=== PATIENT | female | born 1940 | race African-American/Black ===

== ENCOUNTER 2016-06-02 16:56 | Inpatient (IN) | payer OTHER, MEDICAID ==
[~2016-06-02] VITALS: Ht 165.1 cm; Wt 124.8 kg
[2016-06-02] MEDS ORDERED: ONDANSETRON HCL 4 MG/2 ML VIAL ONE (17:36)
[2016-06-02] MEDS ORDERED: ONDANSETRON HCL 4 MG/2 ML VIAL IV ONE (17:45)
[2016-06-02] MEDS ORDERED: DILTIAZEM HCL 25 MG/5 ML VIAL IV ONE (17:45)
[2016-06-02 18:15] LABS: B-Type Natriuretic Peptide 16.9 pg/mL (0-100); Temperature: 23.4 C (20.0-25.0)
[2016-06-02 18:19] LABS: Basophils # (auto) 0.1 uL; Basophils % (auto) 0.7 % (0.0-2.0); Eosinophils # (auto) 0.1 uL; Eosinophils % (auto) 0.8 % (0.0-7.0); Hematocrit 41.4 % (36.0-46.0); Hemoglobin 13.3 g/dL (12.2-16.2); Lymphocytes # (auto) 1.7 uL; Lymphocytes % (auto) 18.1 % (10.0-50.0); Mean Corpuscular Hemoglobin 30.6 pg (28.0-32.0); Mean Corpuscular Hgb Conc. 32.2 g/dL (32.0-36.0); Mean Platelet Volume 9.4 fL (7.4-10.4); Monocytes # (auto) 0.1 uL; Monocytes % (auto) 0.9 % (0.0-12.0); Neutrophils # (auto) 7.4 uL; Neutrophils % (auto) 79.5 % (37.0-80.0); Platelet Count (auto) 220 10^3/uL (140-450); Red Cell Distribution Width 14.4 % (11.6-16.0); White Blood Cell 9.4 10^3/uL (4.4-10.8)
[2016-06-02 18:22] LABS: Albumin 3.8 g/dL (3.4-5.0); BUN/Creatinine Ratio 13.8; Bilirubin, Total 0.7 mg/dL (0.2-1.0); Calcium 9.7 mg/dL (8.5-10.1); Potassium 4.4 mmol/L (3.5-5.1)
[2016-06-02] MEDS ORDERED: ACETAMINOPHEN 325 MG TAB PO ONE ×2 (18:30→21:45)
[2016-06-02] MEDS ORDERED: cefTRIAXone 1GM/50ML D5W 50 ML IV ONE (19:45)
[2016-06-02 21:04] LABS: Urine Bilirubin Negative (Negative); Urine Blood Negative /uL (Negative); Urine Color Yellow (Yellow); Urine Glucose Normal (Normal); Urine Ketone Negative (Negative); Urine Nitrite Negative (Negative); Urine RBC 1 /hpf (0 - 4); Urine Squamous Epithelial Cell FEW /hpf (<5); Urine pH 6.5 (5.0-8.0)
[2016-06-03] VITALS (7 sets, daily range): BP systolic 101–161; BP diastolic 43–79
[2016-06-03 00:06] LABS: Lactic Acid w/Reflex 2.9 mmol/L (0.4-2.0)
[2016-06-03 00:12] LABS: REFLEX LACTIC ACID YES OR NO YES
[2016-06-03] MEDS ORDERED: DEXTROSE (50%) 50ML SYRG IV PRN (02:00)
[2016-06-03] MEDS ORDERED: VANCOMYCIN 1GM/250ML D5W 250 ML IV ONE (02:00)
[2016-06-03] MEDS ORDERED: ALBUMIN 5% 250 ML IV ONE (02:00)
[2016-06-03] MEDS ORDERED: ONDANSETRON HCL 4 MG/2 ML VIAL IV PRN (02:00)
[2016-06-03] MEDS ORDERED: ALBUTEROL SULF 2.5 MG/0.5ML(0.5%) NEB SOLN NEB PRN (06:00)
[2016-06-03] MEDS ORDERED: FUROSEMIDE 20 MG/2 ML VIAL IV ONE (06:00)
[2016-06-03] MEDS: ACCU-CHEK COMFORT CURVE STRIP VI SCH ×3 (06:29→18:10)
[2016-06-03] MEDS: InsuLIN REG 1unit/0.01ml Soln (100units/ml) SC SCH ×3 (06:29→18:26)
[2016-06-03] MEDS: GLIMEPIRIDE 2 MG TAB PO SCH (06:36)
[2016-06-03 07:59] LABS: Lactic Acid w/Reflex 2.5 mmol/L (0.4-2.0)
[2016-06-03 08:22] LABS: REFLEX LACTIC ACID YES OR NO YES
[2016-06-03] MEDS: ACETAMINOPHEN 325 MG TAB PO PRN ×2 (09:59→16:42)
[2016-06-03] MEDS ORDERED: LISINOPRIL 5 MG TAB PO SCH (10:00)
[2016-06-03] MEDS ORDERED: HCTZ 25 MG TAB PO SCH (10:00)
[2016-06-03] MEDS ORDERED: BENAZEPRIL HCL 10 MG TAB PO SCH (10:00)
[2016-06-03] MEDS: FUROSEMIDE 20 MG TAB PO SCH (10:01)
[2016-06-03] MEDS: ENOXAPARIN SOD 40 MG/0.4 ML SYRINGE SC SCH (10:01)
[2016-06-03] MEDS: FAMOTIDINE 20 MG TAB PO SCH ×2 (10:01→21:43)
[2016-06-03] MEDS ORDERED: VANCOMYCIN PER PHARMACY 0 MG IV SCH (11:15)
[2016-06-03] MEDS ORDERED: VANCOMYCIN 1GM/250ML D5W 250 ML IV SCH (13:00)
[2016-06-03] MEDS: PIPERACILLIN-TAZOB 3.375GM 100 ML IV SCH ×2 (13:13→18:25)
[2016-06-03] MEDS: SODIUM CHLORIDE 0.9% 1,000 ML IV SCH (16:44)
[2016-06-03] MEDS ORDERED: DOCUSATE SOD 100 MG CAP PO PRN (16:45)
[2016-06-03] MEDS: HYDROcodone-ACET 5/325MG TAB PO PRN (21:44)
[2016-06-03] MEDS ORDERED: ATORVASTATIN 20 MG TAB PO SCH (22:00)
[2016-06-03] MEDS ORDERED: PATIENTS OWN MEDICATION (simvastatin 20 MG) PO SCH ×2 (22:00)
[2016-06-03] MEDS ORDERED: cefTRIAXone 1GM/50ML D5W 50 ML IV SCH (22:00)
[2016-06-04] VITALS (7 sets, daily range): BP systolic 134–180; BP diastolic 64–93
[2016-06-04] MEDS: ACCU-CHEK COMFORT CURVE STRIP VI SCH ×5 (00:12→23:42)
[2016-06-04] MEDS: PIPERACILLIN-TAZOB 3.375GM 100 ML IV SCH ×2 (00:13→05:41)
[2016-06-04] MEDS: InsuLIN REG 1unit/0.01ml Soln (100units/ml) SC SCH ×5 (00:29→23:42)
[2016-06-04] MEDS: GLIMEPIRIDE 2 MG TAB PO SCH (05:41)
[2016-06-04 05:42] LABS: Basophils # (auto) 0 uL; Basophils % (auto) 0.2 % (0.0-2.0); Eosinophils # (auto) 0.2 uL; Eosinophils % (auto) 2.2 % (0.0-7.0); Hematocrit 36.3 % (36.0-46.0); Hemoglobin 11.7 g/dL (12.2-16.2); Lymphocytes # (auto) 1.8 uL; Lymphocytes % (auto) 16.3 % (10.0-50.0); Mean Corpuscular Hemoglobin 30.7 pg (28.0-32.0); Mean Corpuscular Hgb Conc. 32.3 g/dL (32.0-36.0); Mean Corpuscular Volume 95.2 fL (80.0-100.0); Mean Platelet Volume 9.4 fL (7.4-10.4); Monocytes # (auto) 0.4 uL; Monocytes % (auto) 3.8 % (0.0-12.0); Neutrophils # (auto) 8.6 uL; Neutrophils % (auto) 77.5 % (37.0-80.0); Platelet Count (auto) 224 10^3/uL (140-450); White Blood Cell 11.1 10^3/uL (4.4-10.8)
[2016-06-04 06:02] LABS: BUN/Creatinine Ratio 11.6; Bilirubin, Total 0.9 mg/dL (0.2-1.0); Magnesium 2.1 mg/dL (1.6-2.6); Potassium 3.5 mmol/L (3.5-5.1)
[2016-06-04] MEDS: FUROSEMIDE 20 MG TAB PO SCH (09:22)
[2016-06-04] MEDS: FAMOTIDINE 20 MG TAB PO SCH ×2 (09:22→21:36)
[2016-06-04] MEDS: ENOXAPARIN SOD 40 MG/0.4 ML SYRINGE SC SCH (09:25)
[2016-06-04] MEDS ORDERED: LISINOPRIL 5 MG TAB PO SCH (10:00)
[2016-06-04] MEDS: SODIUM CHLORIDE 0.9% 1,000 ML IV SCH ×2 (11:30→15:30)
[2016-06-04] MEDS: PIPERACILLIN-TAZOB 2.25GM 50 ML IV SCH ×3 (12:37→23:42)
[2016-06-04 13:37] LABS: Hepatitis B Surface Antibody Negative
[2016-06-04] MEDS ORDERED: LACTULOSE 20Gm/30ML SOLN PO PRN (15:00)
[2016-06-04] MEDS ORDERED: GABA300C8 PO (15:09)
[2016-06-04] MEDS ORDERED: DOCU100C8 PO (15:09)
[2016-06-04] MEDS ORDERED: ALLO300T2 PO (15:20)
[2016-06-04] MEDS ORDERED: LISI2.5T47 PO (15:20)
[2016-06-04] MEDS ORDERED: POTA10SO11 PO (15:20)
[2016-06-04] MEDS ORDERED: OMEP20CA5 PO (15:20)
[2016-06-04] MEDS ORDERED: CLON0.2T PO (15:20)
[2016-06-04] MEDS ORDERED: INSLANTI SC (15:20)
[2016-06-04] MEDS ORDERED: INSLISPI SC (15:20)
[2016-06-04] MEDS: cloNIDine HCL 0.1 MG TAB PO PRN (21:36)
[2016-06-04] MEDS: METOPROLOL TARTRATE 25 MG TAB PO SCH (21:36)
[2016-06-04] MEDS: HYDROcodone-ACET 5/325MG TAB PO PRN (21:37)
[2016-06-05] VITALS (7 sets, daily range): BP systolic 125–158; BP diastolic 61–94
[2016-06-05] MEDS: HYDROcodone-ACET 5/325MG TAB PO PRN (05:34)
[2016-06-05] MEDS: cloNIDine HCL 0.1 MG TAB PO PRN (05:34)
[2016-06-05] MEDS: GLIMEPIRIDE 2 MG TAB PO SCH (05:35)
[2016-06-05] MEDS: ACCU-CHEK COMFORT CURVE STRIP VI SCH ×3 (05:35→18:05)
[2016-06-05] MEDS: InsuLIN REG 1unit/0.01ml Soln (100units/ml) SC SCH ×3 (05:35→18:06)
[2016-06-05] MEDS: PIPERACILLIN-TAZOB 2.25GM 50 ML IV SCH (05:35)
[2016-06-05 05:58] LABS: Basophils # (auto) 0 uL; Basophils % (auto) 0.5 % (0.0-2.0); Eosinophils # (auto) 0.4 uL; Eosinophils % (auto) 5.5 % (0.0-7.0); Lymphocytes % (auto) 27.2 % (10.0-50.0); Mean Corpuscular Hemoglobin 31.1 pg (28.0-32.0); Mean Corpuscular Hgb Conc. 32.5 g/dL (32.0-36.0); Mean Corpuscular Volume 95.9 fL (80.0-100.0); Mean Platelet Volume 8.6 fL (7.4-10.4); Monocytes # (auto) 0.5 uL; Monocytes % (auto) 7.1 % (0.0-12.0); Neutrophils # (auto) 4.4 uL; Neutrophils % (auto) 59.7 % (37.0-80.0); Platelet Count (auto) 228 10^3/uL (140-450); Red Cell Distribution Width 15.6 % (11.6-16.0); White Blood Cell 7.4 10^3/uL (4.4-10.8)
[2016-06-05 06:15] LABS: BUN/Creatinine Ratio 12.8; Calcium 9.1 mg/dL (8.5-10.1); Potassium 3.5 mmol/L (3.5-5.1)
[2016-06-05 06:18] LABS: Bilirubin, Total 0.6 mg/dL (0.2-1.0)
[2016-06-05] MEDS: SODIUM CHLORIDE 0.9% 1,000 ML IV SCH (08:10)
[2016-06-05] MEDS: FAMOTIDINE 20 MG TAB PO SCH ×2 (10:19→21:56)
[2016-06-05] MEDS: METOPROLOL TARTRATE 25 MG TAB PO SCH ×2 (10:20→21:57)
[2016-06-05] MEDS: ENOXAPARIN SOD 40 MG/0.4 ML SYRINGE SC SCH (10:21)
[2016-06-05] MEDS: AMPICILLIN 250 MG CAP PO SCH (17:47)
[2016-06-06] MEDS: HYDROcodone-ACET 5/325MG TAB PO PRN ×2 (00:02→16:46)
[2016-06-06] MEDS: ACCU-CHEK COMFORT CURVE STRIP VI SCH ×4 (00:27→18:32)
[2016-06-06] MEDS: InsuLIN REG 1unit/0.01ml Soln (100units/ml) SC SCH ×4 (00:28→18:32)
[2016-06-06] MEDS ORDERED: AMPICILLIN INJ 1 GM in SODIUM CHL 0.9% 50 ML IV ONE (01:00)
[2016-06-06] MEDS ORDERED: AMPICILLIN SOD 1 GM VL ONE (01:04)
[2016-06-06] MEDS: SODIUM CHLORIDE 0.9% 1,000 ML IV SCH ×2 (01:20→17:18)
[2016-06-06 04:18] VITALS: BP 121/72
[2016-06-06 05:00] VITALS: BP 148/78
[2016-06-06] MEDS: GLIMEPIRIDE 2 MG TAB PO SCH (06:12)
[2016-06-06 06:35] LABS: Albumin 3.1 g/dL (3.4-5.0); Calcium 9.2 mg/dL (8.5-10.1); Potassium 3.4 mmol/L (3.5-5.1)
[2016-06-06 06:38] LABS: BUN/Creatinine Ratio 13.3
[2016-06-06 06:41] LABS: Bilirubin, Total 0.6 mg/dL (0.2-1.0); Total Protein 7.3 g/dL (6.4-8.2)
[2016-06-06] MEDS: AMPICILLIN 250 MG CAP PO SCH ×4 (07:00→18:31)
[2016-06-06 09:00] VITALS: BP 146/77
[2016-06-06] MEDS: FAMOTIDINE 20 MG TAB PO SCH ×2 (09:57→21:08)
[2016-06-06] MEDS: ENOXAPARIN SOD 40 MG/0.4 ML SYRINGE SC SCH (09:57)
[2016-06-06] MEDS: METOPROLOL TARTRATE 25 MG TAB PO SCH ×2 (09:58→21:08)
[2016-06-06 13:00] VITALS: BP 161/99
[2016-06-06] MEDS: cloNIDine HCL 0.1 MG TAB PO PRN ×2 (14:42→21:09)
[2016-06-06 17:00] VITALS: BP 167/93
[2016-06-06 22:00] VITALS: BP 205/95
[2016-06-07] VITALS (7 sets, daily range): BP systolic 160–182; BP diastolic 48–92
[2016-06-07] MEDS: AMPICILLIN 250 MG CAP PO SCH ×4 (00:38→18:15)
[2016-06-07 05:45] LABS: Basophils # (auto) 0 uL; Basophils % (auto) 0.4 % (0.0-2.0); Eosinophils # (auto) 0.3 uL; Eosinophils % (auto) 3.8 % (0.0-7.0); Hematocrit 38.6 % (36.0-46.0); Hemoglobin 12.6 g/dL (12.2-16.2); Lymphocytes # (auto) 2.7 uL; Lymphocytes % (auto) 33.1 % (10.0-50.0); Mean Corpuscular Hemoglobin 31.2 pg (28.0-32.0); Mean Corpuscular Hgb Conc. 32.7 g/dL (32.0-36.0); Mean Corpuscular Volume 95.5 fL (80.0-100.0); Mean Platelet Volume 8.6 fL (7.4-10.4); Monocytes # (auto) 0.8 uL; Monocytes % (auto) 10.1 % (0.0-12.0); Neutrophils # (auto) 4.3 uL; Neutrophils % (auto) 52.6 % (37.0-80.0); Platelet Count (auto) 264 10^3/uL (140-450); Red Cell Distribution Width 14.7 % (11.6-16.0); White Blood Cell 8.1 10^3/uL (4.4-10.8)
[2016-06-07 06:09] LABS: Potassium 3.7 mmol/L (3.5-5.1)
[2016-06-07 06:14] LABS: Albumin 3.2 g/dL (3.4-5.0); BUN/Creatinine Ratio 11.9; Calcium 9.3 mg/dL (8.5-10.1)
[2016-06-07 06:20] LABS: Bilirubin, Total 0.6 mg/dL (0.2-1.0); Total Protein 7.3 g/dL (6.4-8.2)
[2016-06-07] MEDS: ACCU-CHEK COMFORT CURVE STRIP VI SCH ×4 (06:29→17:56)
[2016-06-07] MEDS: InsuLIN REG 1unit/0.01ml Soln (100units/ml) SC SCH ×4 (06:29→17:56)
[2016-06-07] MEDS: GLIMEPIRIDE 2 MG TAB PO SCH (06:30)
[2016-06-07] MEDS: cloNIDine HCL 0.1 MG TAB PO PRN ×2 (06:32→22:08)
[2016-06-07] MEDS: FAMOTIDINE 20 MG TAB PO SCH ×2 (09:28→22:07)
[2016-06-07] MEDS: METOPROLOL TARTRATE 25 MG TAB PO SCH ×2 (09:29→22:08)
[2016-06-07] MEDS: SODIUM CHLORIDE 0.9% 1,000 ML IV SCH (09:30)
[2016-06-08] MEDS: AMPICILLIN 250 MG CAP PO SCH ×3 (00:30→11:30)
[2016-06-08] MEDS: SODIUM CHLORIDE 0.9% 1,000 ML IV SCH (02:50)
[2016-06-08 05:25] VITALS: BP 167/80
[2016-06-08] MEDS: InsuLIN REG 1unit/0.01ml Soln (100units/ml) SC SCH ×3 (06:00→12:14)
[2016-06-08] MEDS: ACCU-CHEK COMFORT CURVE STRIP VI SCH ×3 (06:00→12:13)
[2016-06-08 06:18] LABS: Calcium 9.1 mg/dL (8.5-10.1); Potassium 3.7 mmol/L (3.5-5.1)
[2016-06-08 06:20] LABS: Albumin 3.2 g/dL (3.4-5.0); BUN/Creatinine Ratio 12.8
[2016-06-08 06:23] LABS: Bilirubin, Total 0.5 mg/dL (0.2-1.0); Total Protein 7.3 g/dL (6.4-8.2)
[2016-06-08] MEDS: GLIMEPIRIDE 2 MG TAB PO SCH (07:07)
[2016-06-08] MEDS: cloNIDine HCL 0.1 MG TAB PO PRN ×2 (07:07→12:35)
[2016-06-08 08:00] VITALS: BP 161/77
[2016-06-08 09:00] VITALS: BP 161/77
[2016-06-08] MEDS: FAMOTIDINE 20 MG TAB PO SCH (09:47)
[2016-06-08] MEDS: METOPROLOL TARTRATE 25 MG TAB PO SCH (09:48)
[2016-06-08] MEDS: ACETAMINOPHEN 325 MG TAB PO PRN (09:57)
[2016-06-08] MEDS ORDERED: cloNIDine HCL 0.1 MG TAB PO ONE (12:15)
[2016-06-08 13:00] VITALS: BP 198/95
[2016-06-08] MEDS ORDERED: [UNRECOGNIZED DRUG - CODE] PO (13:21)
[2016-06-08] MEDS ORDERED: SACC250C PO (13:21)
[2016-06-08 16:01] VITALS: BP 198/75
== END 2016-06-08 16:30 | disposition home or self-care (01) | DRG 871 ==
LOC: EDUNIT# 16:56 → ER 16:56 → TELE 16:57 → TELE-WESTW 06-03 02:42
PROVIDERS: ADMIT Nurse Practitioner; ATTEND Internal Medicine
DX: A40.8 Other streptococcal sepsis (principal); N17.0 Acute kidney failure with tubular necrosis; I50.31 Acute diastolic (congestive) heart failure; I13.0 Hypertensive heart and chronic kidney disease with heart failure and stage 1 through stage 4 chronic kidney disease, or unspecified chronic kidney disease; N18.3 Chronic kidney disease, stage 3 (moderate); E11.22 Type 2 diabetes mellitus with diabetic chronic kidney disease; F32.9 Major depressive disorder, single episode, unspecified; D25.9 Leiomyoma of uterus, unspecified; E11.21 Type 2 diabetes mellitus with diabetic nephropathy; G47.33 Obstructive sleep apnea (adult) (pediatric); I25.10 Atherosclerotic heart disease of native coronary artery without angina pectoris; J44.9 Chronic obstructive pulmonary disease, unspecified; T38.0X5A Adverse effect of glucocorticoids and synthetic analogues, initial encounter; Z82.49 Family history of ischemic heart disease and other diseases of the circulatory system; Z99.81 Dependence on supplemental oxygen; Z83.3 Family history of diabetes mellitus; Z80.9 Family history of malignant neoplasm, unspecified; Z88.6 Allergy status to analgesic agent
CPT/HCPCS: 36415; 51702; 70450; 71010; 71020; 74176; 76705; 80053; 80061; 81001; 82378; 82962; 83036; 83605; 83735; 83880; 84484; 85025; 86704; 86706; 86708; 86803; 87040; 87077; 87086; 87186; 87340; 93306; 94761; 96365; 96366; 96375; J0696; J1815; J2405; J2543

== ENCOUNTER 2017-07-24 11:26 | Inpatient (IN) | payer OTHER, MEDICAID ==
[~2017-07-24] VITALS: Ht 152.4 cm; Wt 128.2 kg
[~2017-07-24 11:26] MED LIST: ALLO300T2 PO; CLON0.2T PO; DOCU100C8 PO; GABA300C10 PO; INSLANTI SC; INSLISPI SC; LISI2.5T47 PO; OMEP20CA74 PO; POTA10SO11 PO; SACC250C PO; [UNRECOGNIZED DRUG - CODE] PO
[2017-07-24 13:04] LABS: Basophils # (auto) 0 uL; Basophils % (auto) 0.6 % (0.0-2.0); Eosinophils # (auto) 0.2 uL; Eosinophils % (auto) 2.4 % (0.0-7.0); Hematocrit 36.5 % (36.0-46.0); Lymphocytes # (auto) 1.9 uL; Lymphocytes % (auto) 26.2 % (10.0-50.0); Mean Corpuscular Hemoglobin 31.2 pg (28.0-32.0); Mean Corpuscular Hgb Conc. 32.8 g/dL (32.0-36.0); Mean Corpuscular Volume 95.1 fL (80.0-100.0); Monocytes # (auto) 0.4 uL; Monocytes % (auto) 5.2 % (0.0-12.0); Neutrophils # (auto) 4.8 uL; Neutrophils % (auto) 65.6 % (37.0-80.0); Platelet Count (auto) 248 10^3/uL (140-450); Red Blood Cells 3.84 10^6/uL (4.0-5.20); Red Cell Distribution Width 14.9 % (11.8-14.3); White Blood Cell 7.3 10^3/uL (4.4-10.8)
[2017-07-24] MEDS ORDERED: SODIUM CHLORIDE 0.9% 1,000 ML IV ONE (13:10)
[2017-07-24] MEDS ORDERED: ASPirin 81 mg TAB PO ONE (13:15)
[2017-07-24 13:21] LABS: Albumin 3.6 g/dL (3.4-5.0); Anion Gap 10 (5-15); Blood Urea Nitrogen 35 mg/dL (7-18); Calcium 9.7 mg/dL (8.5-10.1); Carbon Dioxide 30 mmol/L (21-32); Chloride 100 mmol/L (98-107); Glucose 153 mg/dL (74-106); Magnesium 2.1 mg/dL (1.6-2.6); Potassium 4.1 mmol/L (3.5-5.1); Sodium 140 mmol/L (136-145)
[2017-07-24 13:23] LABS: Alanine Aminotransferase 31 U/L (13-56); Aspartate Aminotransferase 21 U/L (15-37); GFR African American 30 mL/min; GFR Non-African American 25 mL/min
[2017-07-24 13:28] LABS: Alkaline Phosphatase 58 U/L (45-117); Bilirubin, Total 0.3 mg/dL (0.2-1.0); Total Protein 7.6 g/dL (6.4-8.2)
[2017-07-24 14:22] LABS: INR 0.93 (0.9-1.15); Partial Thromboplastin Time 25.7 sec (23.78-33.04)
[2017-07-24 14:22] LABS: Urine Bacteria NONE SEEN /hpf (None Seen); Urine Blood Negative /uL (Negative); Urine Specific Gravity 1.014 (1.001-1.035); Urine WBC <1 /hpf (0 - 5)
[2017-07-24] MEDS ORDERED: FUROSEMIDE 40 MG/4 ML VIAL IV ONE (15:45)
[2017-07-24] MEDS ORDERED: DEXTROSE (50%) 50ML SYRG IV PRN (18:15)
[2017-07-24] MEDS ORDERED: cloNIDine HCL 0.1 MG TAB PO PRN (18:30)
[2017-07-24] MEDS ORDERED: NITROGLYCERIN 0.4 MG SL TAB SL PRN (18:30)
[2017-07-24] MEDS ORDERED: MORPHINE SULFATE 8mg/ml INJ SDV IV PRN (18:30)
[2017-07-24] MEDS ORDERED: ACETAMINOPHEN 325 MG TAB PO PRN (18:30)
[2017-07-24] MEDS ORDERED: ONDANSETRON HCL 4 MG/2 ML VIAL IV PRN (18:30)
[2017-07-24] MEDS: FAMOTIDINE 20 MG TAB PO SCH (18:56)
[2017-07-24 21:18] VITALS: BP 166/86
[2017-07-24 21:35] VITALS: BP 166/86
[2017-07-24] MEDS: ACCU-CHEK COMFORT CURVE STRIP VI SCH (22:00)
[2017-07-24] MEDS: INSULIN LANTUS (GLARGINE) 1 /0.01ml (100units/ml) SC SCH (22:00)
[2017-07-24] MEDS: InsuLIN REG 1unit/0.01ml Soln (100units/ml) SC SCH (22:00)
[2017-07-24] MEDS: GABAPENTIN 300 MG CAP PO SCH (22:03)
[2017-07-24] MEDS: BACLOFEN 10 MG TAB PO SCH (22:03)
[2017-07-24] MEDS: cloNIDine HCL 0.1 MG TAB PO SCH (22:04)
[2017-07-24] MEDS: ATORVASTATIN 20 MG TAB PO SCH (22:05)
[2017-07-24] MEDS: SODIUM CHLOR 0.9% PF (SALINE LOCK) 10ML VIAL/SYR IV SCH (22:05)
[2017-07-24] MEDS: MORPHINE SULFATE 8mg/ml INJ SDV IV PRN (22:45)
[2017-07-25] MEDS: TEMAZEPAM 15 MG CAP PO PRN ×2 (01:30→23:05)
[2017-07-25 05:07] VITALS: BP 140/74
[2017-07-25 06:35] LABS: Basophils # (auto) 0.1 uL; Basophils % (auto) 1.1 % (0.0-2.0); Eosinophils # (auto) 0.2 uL; Eosinophils % (auto) 2.8 % (0.0-7.0); Hematocrit 35.3 % (36.0-46.0); Hemoglobin 11.6 g/dL (12.2-16.2); Lymphocytes # (auto) 2.3 uL; Lymphocytes % (auto) 36.7 % (10.0-50.0); Mean Corpuscular Hemoglobin 31.5 pg (28.0-32.0); Mean Corpuscular Volume 95.3 fL (80.0-100.0); Monocytes # (auto) 0.5 uL; Monocytes % (auto) 8.3 % (0.0-12.0); Neutrophils # (auto) 3.2 uL; Neutrophils % (auto) 51.1 % (37.0-80.0); Nucleated Red Blood Cells % 0.1 %; Platelet Count (auto) 256 10^3/uL (140-450); Red Cell Distribution Width 14.9 % (11.8-14.3); White Blood Cell 6.2 10^3/uL (4.4-10.8)
[2017-07-25] MEDS: FUROSEMIDE 40 MG/4 ML VIAL IV SCH ×2 (06:41→17:37)
[2017-07-25] MEDS: SPIRONOLACTONE 25 MG TAB PO SCH ×2 (06:41→17:37)
[2017-07-25] MEDS: SODIUM CHLOR 0.9% PF (SALINE LOCK) 10ML VIAL/SYR IV SCH ×3 (06:42→21:43)
[2017-07-25 06:46] LABS: Albumin 3.3 g/dL (3.4-5.0); BUN/Creatinine Ratio 16.6; Calcium 9.3 mg/dL (8.5-10.1); Potassium 3.8 mmol/L (3.5-5.1)
[2017-07-25 06:49] LABS: Bilirubin, Total 0.3 mg/dL (0.2-1.0); Total Protein 7.3 g/dL (6.4-8.2)
[2017-07-25] MEDS: InsuLIN REG 1unit/0.01ml Soln (100units/ml) SC SCH ×4 (06:55→21:44)
[2017-07-25] MEDS: ACCU-CHEK COMFORT CURVE STRIP VI SCH ×4 (06:55→21:43)
[2017-07-25] MEDS: MORPHINE SULFATE 8mg/ml INJ SDV IV PRN ×2 (06:55→17:07)
[2017-07-25 08:00] VITALS: BP 143/69
[2017-07-25] MEDS ORDERED: GLIMEPIRIDE 2 MG TAB PO SCH (08:00)
[2017-07-25] MEDS: MULTIPLE VITAMIN TAB PO SCH (08:42)
[2017-07-25] MEDS: LORATADINE 10 MG TAB PO SCH (08:42)
[2017-07-25] MEDS: PANTOPRAZOLE 40 MG TAB PO SCH (08:43)
[2017-07-25] MEDS: amLODIPine BESYLATE 5 MG TAB PO SCH (08:44)
[2017-07-25] MEDS: ALLOPURINOL 100 MG TAB PO SCH (08:44)
[2017-07-25] MEDS: cloNIDine HCL 0.1 MG TAB PO SCH ×2 (08:46→21:39)
[2017-07-25] MEDS: ENOXAPARIN SOD 30 MG/0.3 ML SYRINGE SC SCH (08:47)
[2017-07-25 09:00] VITALS: BP 143/69
[2017-07-25] MEDS ORDERED: BENAZEPRIL HCL 10 MG TAB PO SCH (10:00)
[2017-07-25 13:00] VITALS: BP 136/65
[2017-07-25 17:00] VITALS: BP 159/66
[2017-07-25] MEDS ORDERED: BUMETANIDE (0.25MG/ML) 4 ML VIAL IV ONE (19:30)
[2017-07-25 19:49] LABS: BUN/Creatinine Ratio 15.6; Calcium 9.1 mg/dL (8.5-10.1); Potassium 4.2 mmol/L (3.5-5.1)
[2017-07-25] MEDS: HYDROcodone-ACET 5/325MG TAB PO PRN (20:31)
[2017-07-25 21:24] VITALS: BP 128/66
[2017-07-25] MEDS: ATORVASTATIN 20 MG TAB PO SCH (21:39)
[2017-07-25] MEDS: BACLOFEN 10 MG TAB PO SCH (21:39)
[2017-07-25] MEDS: GABAPENTIN 300 MG CAP PO SCH (21:39)
[2017-07-25] MEDS: INSULIN LANTUS (GLARGINE) 1 /0.01ml (100units/ml) SC SCH (21:43)
[2017-07-26 04:37] VITALS: BP 147/65
[2017-07-26] MEDS: SPIRONOLACTONE 25 MG TAB PO SCH ×2 (05:24→18:00)
[2017-07-26] MEDS: DOCUSATE SOD 100 MG CAP PO PRN (05:24)
[2017-07-26] MEDS: SODIUM CHLOR 0.9% PF (SALINE LOCK) 10ML VIAL/SYR IV SCH ×3 (05:24→22:00)
[2017-07-26] MEDS: HYDROcodone-ACET 5/325MG TAB PO PRN (05:59)
[2017-07-26] MEDS ORDERED: FUROSEMIDE 40 MG/4 ML VIAL IV SCH (06:00)
[2017-07-26] MEDS: ACCU-CHEK COMFORT CURVE STRIP VI SCH ×4 (06:12→22:00)
[2017-07-26] MEDS: InsuLIN REG 1unit/0.01ml Soln (100units/ml) SC SCH ×4 (06:12→22:00)
[2017-07-26 08:53] VITALS: BP 152/73
[2017-07-26] MEDS: amLODIPine BESYLATE 5 MG TAB PO SCH (09:19)
[2017-07-26] MEDS: LORATADINE 10 MG TAB PO SCH (09:19)
[2017-07-26] MEDS: PANTOPRAZOLE 40 MG TAB PO SCH (09:20)
[2017-07-26] MEDS: ALLOPURINOL 100 MG TAB PO SCH (09:20)
[2017-07-26] MEDS: cloNIDine HCL 0.1 MG TAB PO SCH ×2 (09:20→23:04)
[2017-07-26] MEDS: ENOXAPARIN SOD 30 MG/0.3 ML SYRINGE SC SCH (09:21)
[2017-07-26] MEDS: MULTIPLE VITAMIN TAB PO SCH (09:21)
[2017-07-26] MEDS: FAMOTIDINE 20 MG TAB PO SCH (09:24)
[2017-07-26] MEDS: MORPHINE SULFATE 8mg/ml INJ SDV IV PRN (09:29)
[2017-07-26 13:00] VITALS: BP 138/63
[2017-07-26 17:00] VITALS: BP 141/78
[2017-07-26 21:55] VITALS: BP 157/76
[2017-07-26] MEDS: INSULIN LANTUS (GLARGINE) 1 /0.01ml (100units/ml) SC SCH (22:00)
[2017-07-26] MEDS: BACLOFEN 10 MG TAB PO SCH (23:03)
[2017-07-26] MEDS: GABAPENTIN 300 MG CAP PO SCH (23:04)
[2017-07-26] MEDS: ATORVASTATIN 20 MG TAB PO SCH (23:05)
[2017-07-27 04:49] VITALS: BP 137/61
[2017-07-27] MEDS: SPIRONOLACTONE 25 MG TAB PO SCH ×2 (05:46→17:23)
[2017-07-27] MEDS: SODIUM CHLOR 0.9% PF (SALINE LOCK) 10ML VIAL/SYR IV SCH ×3 (05:47→22:58)
[2017-07-27] MEDS: InsuLIN REG 1unit/0.01ml Soln (100units/ml) SC SCH ×4 (05:48→22:24)
[2017-07-27] MEDS: ACCU-CHEK COMFORT CURVE STRIP VI SCH ×4 (05:48→22:24)
[2017-07-27 06:57] LABS: Calcium 9.4 mg/dL (8.5-10.1)
[2017-07-27 07:01] LABS: BUN/Creatinine Ratio 16.5
[2017-07-27 07:18] VITALS: BP 133/65
[2017-07-27 08:00] VITALS: BP 133/65
[2017-07-27] MEDS: ENOXAPARIN SOD 30 MG/0.3 ML SYRINGE SC SCH (09:02)
[2017-07-27] MEDS: LORATADINE 10 MG TAB PO SCH (09:02)
[2017-07-27] MEDS: FUROSEMIDE 40 MG/4 ML VIAL IV SCH (09:02)
[2017-07-27] MEDS: ALLOPURINOL 100 MG TAB PO SCH (09:03)
[2017-07-27] MEDS: PANTOPRAZOLE 40 MG TAB PO SCH (09:03)
[2017-07-27] MEDS: amLODIPine BESYLATE 5 MG TAB PO SCH (09:04)
[2017-07-27] MEDS: cloNIDine HCL 0.1 MG TAB PO SCH ×2 (09:04→22:16)
[2017-07-27] MEDS: MULTIPLE VITAMIN TAB PO SCH (09:04)
[2017-07-27] MEDS ORDERED: FUROSEMIDE 40 MG/4 ML VIAL IV SCH (10:00)
[2017-07-27] MEDS: DOCUSATE SOD 100 MG CAP PO PRN (10:27)
[2017-07-27 11:44] VITALS: BP 119/76
[2017-07-27] MEDS: HYDROcodone-ACET 5/325MG TAB PO PRN (15:28)
[2017-07-27 16:10] VITALS: BP 133/71
[2017-07-27 22:00] VITALS: BP 145/80
[2017-07-27] MEDS: GABAPENTIN 300 MG CAP PO SCH (22:16)
[2017-07-27] MEDS: BACLOFEN 10 MG TAB PO SCH (22:17)
[2017-07-27] MEDS: ATORVASTATIN 20 MG TAB PO SCH (22:17)
[2017-07-27] MEDS: INSULIN LANTUS (GLARGINE) 1 /0.01ml (100units/ml) SC SCH (22:23)
[2017-07-28] MEDS: HYDROcodone-ACET 5/325MG TAB PO PRN (03:48)
[2017-07-28] MEDS: SODIUM CHLOR 0.9% PF (SALINE LOCK) 10ML VIAL/SYR IV SCH ×3 (04:55→21:53)
[2017-07-28 05:00] VITALS: BP 131/73
[2017-07-28 06:38] LABS: BUN/Creatinine Ratio 18.5; Calcium 9.2 mg/dL (8.5-10.1); Potassium 3.9 mmol/L (3.5-5.1)
[2017-07-28] MEDS: SPIRONOLACTONE 25 MG TAB PO SCH ×2 (06:44→17:48)
[2017-07-28] MEDS: InsuLIN REG 1unit/0.01ml Soln (100units/ml) SC SCH ×4 (06:45→21:41)
[2017-07-28] MEDS: ACCU-CHEK COMFORT CURVE STRIP VI SCH ×4 (06:45→21:41)
[2017-07-28 08:20] VITALS: BP 135/69
[2017-07-28] MEDS: ENOXAPARIN SOD 30 MG/0.3 ML SYRINGE SC SCH (09:19)
[2017-07-28] MEDS: FUROSEMIDE 40 MG/4 ML VIAL IV SCH (09:20)
[2017-07-28] MEDS: ALLOPURINOL 100 MG TAB PO SCH (09:20)
[2017-07-28] MEDS: cloNIDine HCL 0.1 MG TAB PO SCH ×2 (09:21→21:39)
[2017-07-28] MEDS: PANTOPRAZOLE 40 MG TAB PO SCH (09:22)
[2017-07-28] MEDS: amLODIPine BESYLATE 5 MG TAB PO SCH (09:22)
[2017-07-28] MEDS: LORATADINE 10 MG TAB PO SCH (09:22)
[2017-07-28] MEDS: MULTIPLE VITAMIN TAB PO SCH (09:23)
[2017-07-28] MEDS: FAMOTIDINE 20 MG TAB PO SCH (09:50)
[2017-07-28 12:31] VITALS: BP 122/66
[2017-07-28 16:57] VITALS: BP 147/69
[2017-07-28 21:30] VITALS: BP 154/67
[2017-07-28] MEDS: ATORVASTATIN 20 MG TAB PO SCH (21:40)
[2017-07-28] MEDS: BACLOFEN 10 MG TAB PO SCH (21:40)
[2017-07-28] MEDS: PREGABALIN CAPSULE 75 MG CAP PO SCH (21:40)
[2017-07-28] MEDS: GABAPENTIN 300 MG CAP PO SCH (21:40)
[2017-07-28] MEDS: INSULIN LANTUS (GLARGINE) 1 /0.01ml (100units/ml) SC SCH (21:41)
[2017-07-28 22:59] LABS: Protein, Urine 20.6 mg/dL (0.0-11.9)
[2017-07-28 23:25] VITALS: BP 141/51
[2017-07-29] VITALS: BP 141/51
[2017-07-29 04:48] VITALS: BP 130/61
[2017-07-29] MEDS: SPIRONOLACTONE 25 MG TAB PO SCH (05:48)
[2017-07-29] MEDS: SODIUM CHLOR 0.9% PF (SALINE LOCK) 10ML VIAL/SYR IV SCH ×2 (05:48→14:12)
[2017-07-29] MEDS: ACCU-CHEK COMFORT CURVE STRIP VI SCH ×2 (06:16→11:06)
[2017-07-29] MEDS: InsuLIN REG 1unit/0.01ml Soln (100units/ml) SC SCH ×2 (06:16→11:06)
[2017-07-29 06:34] LABS: Calcium 9.9 mg/dL (8.5-10.1); Potassium 3.9 mmol/L (3.5-5.1)
[2017-07-29 06:46] LABS: BUN/Creatinine Ratio 19.9
[2017-07-29 08:46] LABS: Cholesterol 83 mg/dL (< 200); HDL Cholesterol 35 mg/dL (40-59); LDL Cholesterol 39 mg/dL (< 100); Triglycerides 136 mg/dL (< 150)
[2017-07-29 08:54] VITALS: BP 160/64
[2017-07-29] MEDS: FUROSEMIDE 40 MG/4 ML VIAL IV SCH (09:45)
[2017-07-29] MEDS: LORATADINE 10 MG TAB PO SCH (09:46)
[2017-07-29] MEDS: cloNIDine HCL 0.1 MG TAB PO SCH (09:46)
[2017-07-29] MEDS: PREGABALIN CAPSULE 75 MG CAP PO SCH (09:46)
[2017-07-29] MEDS: MULTIPLE VITAMIN TAB PO SCH (09:46)
[2017-07-29] MEDS: ALLOPURINOL 100 MG TAB PO SCH (09:47)
[2017-07-29] MEDS: ENOXAPARIN SOD 30 MG/0.3 ML SYRINGE SC SCH (09:47)
[2017-07-29] MEDS: PANTOPRAZOLE 40 MG TAB PO SCH (09:47)
[2017-07-29] MEDS: amLODIPine BESYLATE 5 MG TAB PO SCH (09:47)
[2017-07-29 12:46] VITALS: BP 160/62
[2017-07-29 14:18] VITALS: BP 160/62
== END 2017-07-29 15:34 | disposition home health service (06) | DRG 291 ==
LOC: ER 11:26 → TELE-WESTW 11:27
PROVIDERS: ADMIT Internal Medicine; ATTEND Internal Medicine Pulmonary Disease
DX: I13.0 Hypertensive heart and chronic kidney disease with heart failure and stage 1 through stage 4 chronic kidney disease, or unspecified chronic kidney disease (principal); I50.43 Acute on chronic combined systolic (congestive) and diastolic (congestive) heart failure; E10.21 Type 1 diabetes mellitus with diabetic nephropathy; N18.4 Chronic kidney disease, stage 4 (severe); E10.42 Type 1 diabetes mellitus with diabetic polyneuropathy; Z68.43 Body mass index [BMI] 50.0-59.9, adult; E44.1 Mild protein-calorie malnutrition; E10.65 Type 1 diabetes mellitus with hyperglycemia; D63.8 Anemia in other chronic diseases classified elsewhere; K21.9 Gastro-esophageal reflux disease without esophagitis; M10.9 Gout, unspecified; E66.01 Morbid (severe) obesity due to excess calories; E10.22 Type 1 diabetes mellitus with diabetic chronic kidney disease; G47.10 Hypersomnia, unspecified; G47.33 Obstructive sleep apnea (adult) (pediatric); I25.10 Atherosclerotic heart disease of native coronary artery without angina pectoris; Z79.4 Long term (current) use of insulin; Z82.49 Family history of ischemic heart disease and other diseases of the circulatory system; Z83.3 Family history of diabetes mellitus; Z91.19 Patient's noncompliance with other medical treatment and regimen
CPT/HCPCS: 36415; 51702; 70450; 71045; 76775; 76856; 80048; 80053; 80061; 81001; 82570; 82607; 82962; 83036; 83735; 83880; 84156; 84443; 84484; 85025; 85610; 85730; 93005; 93306; 93970; 94660; 94761; 96361; 96374; 97110; 97116; 97530; J1815; J2270

== ENCOUNTER → 2022-03-12 | Outpatient (CLI) | payer OTHER, MEDICAID ==
[~2022-03-12] MED LIST changes: +DOCU100C10 PO; -DOCU100C8 PO; -LISI2.5T47 PO; -POTA10SO11 PO
== END | disposition home or self-care (01) ==
LOC: LAB 06:16
PROVIDERS: ATTEND Internal Medicine Pulmonary Disease
DX: Z01.812 Encounter for preprocedural laboratory examination (principal); Z20.822 Contact with and (suspected) exposure to COVID-19; Z79.899 Other long term (current) drug therapy
CPT/HCPCS: 36415; 87426; 94060; 94727; 94729

== ENCOUNTER → 2022-03-12 | Outpatient (CLI) | payer OTHER, MEDICAID ==
[~2022-03-12] MED LIST changes: +ALBUTEROL MEDNEB 2.5 mg/3ml NEB ONE
== END | disposition home or self-care (01) ==
LOC: RT 08:11
PROVIDERS: ATTEND Internal Medicine Pulmonary Disease
DX: R06.02 Shortness of breath (principal); R06.00 Dyspnea, unspecified
CPT/HCPCS: 94060; 94727; 94729

== ENCOUNTER 2023-02-16 05:44 | Day surgery (SDC) | payer OTHER, MEDICAID ==
[~2023-02-16] VITALS: Ht 165.1 cm; Wt 99.3 kg
[2023-02-16] VITALS (7 sets, daily range): BP systolic 132–187; BP diastolic 40–67; PULSE 57–72; RESP 12–19; O2SAT 100
[~2023-02-16 05:44] MED LIST changes: -ALBUTEROL MEDNEB 2.5 mg/3ml NEB ONE; -ALLO300T2 PO; +ASPI-543 PO; +CARV12.544 PO; -DOCU100C10 PO; +EZET10TA22 PO; +GABA-1250 PO; -GABA300C10 PO; -SACC250C PO; +SACU1TAB PO; +TICA90TA PO; -[UNRECOGNIZED DRUG - CODE] PO
[2023-02-16] MEDS ORDERED: IODIXANOL 320MG/ML 100ML BTL IV ONE (07:45)
[2023-02-16] MEDS ORDERED: LIDOCAINE 2%HCL (LOCAL ANESTH.) INJ 20ML MDV ONE (07:45)
[2023-02-16] MEDS ORDERED: ANGIOMAX 250 MG VIAL IV ONE (08:03)
[2023-02-16] MEDS ORDERED: fentaNYL CITRATE 100 MCG/2 ML VL ONE (08:03)
[2023-02-16] MEDS ORDERED: SODIUM CHL 0.9% 50 ML ONE (08:04)
[2023-02-16] MEDS ORDERED: MIDAZOLAM HCL 2MG/2ML 2ml VIAL (1mg/ml) ONE (08:04)
[2023-02-16] MEDS ORDERED: hydrALAZINE HCL 20 MG/ML VL ONE (08:44)
[2023-02-16] MEDS ORDERED: TICAGRELOR 90 MG TAB ONE (09:19)
[2023-02-16] MEDS ORDERED: ASPirin 325 MG TAB ONE (09:20)
[2023-02-16] MEDS ORDERED: ACETAMINOPHEN 500 MG TAB PO ONE ×2 (12:20→12:24)
== END 2023-02-16 12:29 | disposition home or self-care (01) ==
LOC: CATH 05:44
PROVIDERS: ATTEND Internal Medicine Cardiovascular Disease
DX: I25.10 Atherosclerotic heart disease of native coronary artery without angina pectoris (principal); R94.39 Abnormal result of other cardiovascular function study; R06.02 Shortness of breath; R07.89 Other chest pain; I12.0 Hypertensive chronic kidney disease with stage 5 chronic kidney disease or end stage renal disease; N18.6 End stage renal disease; E11.22 Type 2 diabetes mellitus with diabetic chronic kidney disease; E11.51 Type 2 diabetes mellitus with diabetic peripheral angiopathy without gangrene; E66.01 Morbid (severe) obesity due to excess calories; K21.9 Gastro-esophageal reflux disease without esophagitis; I65.23 Occlusion and stenosis of bilateral carotid arteries; Z95.0 Presence of cardiac pacemaker; Z79.899 Other long term (current) drug therapy; Z79.01 Long term (current) use of anticoagulants
CPT/HCPCS: 93458; C1725; C1769; C1874; C1887; C1894; C9600; J0360; J0583; J1644; J2250; J3010; Q9967; 99152

== ENCOUNTER 2024-04-24 06:23 | Inpatient (IN) | payer OTHER, MEDICAID ==
[2024-04-20 12:32] LABS: Urine Bacteria None Seen /hpf (None Seen)
[2024-04-20 12:39] LABS: Basophils # (auto) 0 10 ^3/uL (0-0.2); Basophils % (auto) 0.8 % (0.0-2.0); Eosinophils # (auto) 0.1 10 ^3/uL (0-0.8); Eosinophils % (auto) 2.3 % (0.0-7.0); Hematocrit 33.1 % (36.0-46.0); Hemoglobin 10.6 g/dL (12.2-16.2); Lymphocytes # (auto) 0.9 10 ^3/uL (0.4-5.4); Lymphocytes % (auto) 23.3 % (10.0-50.0); Mean Corpuscular Hemoglobin 30.6 pg (28.0-32.0); Mean Corpuscular Hgb Conc. 32.2 g/dL (32.0-36.0); Mean Corpuscular Volume 95.3 fL (80.0-100.0); Monocytes # (auto) 0.2 10 ^3/uL (0-1.3); Monocytes % (auto) 5.4 % (0.0-12.0); Neutrophils # (auto) 2.6 10 ^3/uL (1.6-8.6); Neutrophils % (auto) 68.2 % (37.0-80.0); Nucleated Red Blood Cells % 0.3 %; Platelet Count (auto) 176 10^3/uL (140-450); Red Blood Cells 3.47 10^6/uL (4.0-5.20); White Blood Cell 3.9 10^3/uL (4.4-10.8)
[2024-04-20 12:50] LABS: Urine Blood Negative /uL (Negative); Urine Clarity Clear (Clear); Urine Color Yellow (Yellow); Urine Protein, UAD 1+ (Negative); Urine Specific Gravity 1.014 (1.001-1.035); Urine Squamous Epithelial Cell FEW /hpf (<5); Urine Urobilinogen 2 mg/dL (Negative); Urine WBC 6 /HPF (0-5); Urine pH 6.5 (5.0-9.0)
[2024-04-20 12:55] LABS: INR 1.25 (0.9-1.15); Partial Thromboplastin Time 30.2 SEC (24.5-34.5)
[2024-04-20 13:16] LABS: Alanine Aminotransferase 13 U/L (7-40); Albumin 4.5 g/dL (3.2-4.8); Alkaline Phosphatase 71 U/L (46-116); Anion Gap 10 (5-15); Aspartate Aminotransferase 18 U/L (13-40); BUN/Creatinine Ratio 3.9 (10.0-20.0); Bilirubin, Total 0.4 mg/dL (0.2-1.0); Blood Urea Nitrogen 16 mg/dL (9-23); Calcium 9.7 mg/dL (8.7-10.4); Total Protein 7.3 g/dL (5.7-8.2)
[2024-04-20 13:19] LABS: Carbon Dioxide 31 mmol/L (20-31); Chloride 94 mmol/L (98-107); Glucose 137 mg/dL (74-106); Potassium 3.3 mmol/L (3.5-5.1); Sodium 135 mmol/L (136-145)
[~2024-04-24] VITALS: Ht 165.1 cm; Wt 96.0 kg
[2024-04-24] VITALS (15 sets, daily range): BP systolic 140–167; BP diastolic 62–80; PULSE 52–82; RESP 9–22; TEMP 98–98.1; O2SAT 95–100
[~2024-04-24 06:23] MED LIST changes: +ATOR-507 PO; -CARV12.544 PO; -CLON0.2T PO; +FLUT1INH6 IN; +METO25TA93 PO; +NIFE90TA75 PO
[2024-04-24] MEDS ORDERED: fentaNYL CITRATE 100 MCG/2 ML VL ONE ×2 (06:50→09:45)
[2024-04-24] MEDS ORDERED: PROPOFOL 10 MG/ML 20 ML IV ONE (06:51)
[2024-04-24] MEDS ORDERED: PHENYLEPHRINE HCL 10 MG/ML VL ONE (06:54)
[2024-04-24] MEDS: BUPIVACAINE 0.25% INJ 50ML VIAL ONE (08:21)
[2024-04-24] MEDS: LIDOCAINE 1% (LOCAL ANESTH.) PF 5ml SDV ONE (08:22)
[2024-04-24] MEDS: LIDOCAINE 1% HCL (LOCAL ANESTH.) INJ 20ML MDV ONE (08:22)
[2024-04-24] MEDS: HEPARIN SODIUM (PORCINE) 5000 UNITS/ML 1ML VIAL ONE (08:23)
[2024-04-24] MEDS ORDERED: ONDANSETRON HCL 4 MG/2 ML VIAL ONE (09:29)
[2024-04-24] MEDS ORDERED: SUGAMMADEX 200mg/2ml Vial (100MG/ML) IV ONE (10:09)
--- NOTE | 2024-04-24 10:22 | POSTOP ---
Post-Operative Note Post-Operative Note Preop Diagnosis RIGHT CAROTID ARTERY STENOSIS Postop Diagnosis: Right internal carotid artery stenosis Operation performed Right carotid endarterectomy Specimen Right internal carotid artery plaque Anesthesia: General Anesthesiologist: General endotracheal tube Blood Loss(fluid mgmt) 130 mL Tourniquet Time None Surgeon Ward Armando MD Date 04/24/24 Time 10:20 WARD ARMANDO Jr., MD Apr 24, 2024 10:22
--- NOTE | 2024-04-24 10:29 | DVHOP2 ---
Operative Report - 2 Report Details Date: 04/24/24 Preop Diagnosis: RIGHT CAROTID ARTERY STENOSIS Postop Diagnosis: Right internal carotid artery stenosis Surgeon: Ward Arredondo MD Anesthesiologist: General endotracheal tube Anesthesia: General Consent: The patient was informed of the risks and benefits of the procedure. These include but are not limited to complications of anesthesia, postoperative infection, incomplete relief of symptoms, recurrence of symptoms, damage to blood vessels, nerves and tendons, deep venous thrombosis, pulmonary embolism and possible need for repeat surgery in the future. Estimated Blood Loss: 130 mL Name of Procedure Performed Right carotid endarterectomy Procedure Details Procedure Details: Patient was identified in the preop hold areas being Mrs. Lennon and at this point in time she was consented preoperatively so she was brought back to the operating posterior upper room table supine position. Patient after adequate induction of anesthesia time-out and antibiotics the right neck was prepped and draped in normal surgical fashion standard right carotid endarterectomy incision was made Bovie cauterization was taken down through the platysma down where the sternocleidomastoid muscle was then retracted laterally the internal jugular vein was then identified and mobilized laterally as well. This allowed us gain access to the common carotid artery there was multiple small branches off the internal jugular vein which were divided with 3-0 soak and hemoclips. The common carotid artery was then circumferentially controlled the bifurcation was identified and 1% preservative-free lidocaine was injected in the carotid bulb no hemodynamic changes were noted. The external carotid artery was then mobilized circumferentially and vessel loops were placed. The plaque was mainly in the internal carotid artery and and when high the digastric muscle had to be divided careful attention was taken to identify and preserve all nerves. The internal carotid artery was then circumferentially controlled above the plaque with vessel loops at this point in time 3000 units of heparin was given. The vessels were all clamped and an arteriotomy was made in the common up into the internal carotid artery was extended with Fuentes scissors the plaque was then removed in the internal carotid artery the [place] shunt was then placed flow was restored lumen was then cleaned out there was no further plaque left behind lumen was then flushed with heparinized saline. A bovine pericardial patch was then sewn to the internal and common carotid artery with six 0 Prolene suture. Prior to completion of the anastomosis the shunt was removed all vessels and valve were flushed with heparin saline and the anastomosis was completed flow was restored Doppler signals were identified and all vessels involved. There was several suture line bleeding is which were controlled with six 0 Prolene interrupted sutures. A LORNA drain was then placed and the wound was then irrigated out and closed with 3-0 Vicryl sutures for the deep carotid sheath layer followed by dermal layer of 3-0 Vicryl sutures in a running fashion followed by 4-0 Monocryl subcuticular suture in a running fashion followed by Dermabond. The drain was secured with a 2-0 silk suture. Sterile dressings were applied sponge needle counts were correct. The patient was brought to the PACU in a stable condition moving all extremities. Specimen: Right internal carotid artery plaque Condition Good Disposition pacu WARD ARREDONDO Jr., MD Apr 24, 2024 10:29
[2024-04-24] MEDS: ONDANSETRON HCL 4 MG/2 ML VIAL IV ONE (10:45)
[2024-04-24] MEDS: ACETAMINOPHEN IV 1000 MG/100ML (10MG/ML) IV PRN (10:45)
[2024-04-24] MEDS: SUCCINYLCHOLINE CHLORIDE 20 MG/ML 10ML VIAL IV ONE (10:48)
[2024-04-24] MEDS: ceFAZolin 2 GM/D5W100ml 100 ML IV ONE (10:49)
[2024-04-24] MEDS: HYDROmorphone HCL 2 MG/ML VL/or syr IV PRN (10:56)
[2024-04-24] MEDS ORDERED: MORPHINE SULFATE INJ 2 MG/ml SYRG IV PRN ×2 (13:15→14:15)
[2024-04-24] MEDS ORDERED: NITROGLYCERIN 0.4 MG SL TAB SL PRN (13:15)
[2024-04-24] MEDS ORDERED: HYDROcodone-ACET 5/325MG TAB PO PRN (14:15)
[2024-04-24] MEDS ORDERED: ONDANSETRON HCL 4 MG/2 ML VIAL IV PRN (14:15)
[2024-04-24] MEDS ORDERED: ACETAMINOPHEN 325 MG TAB PO PRN (14:15)
[2024-04-24] MEDS ORDERED: DEXTROSE (50%) 50ML SYRG IV PRN (14:15)
--- NOTE | 2024-04-24 14:25 | DVHHP ---
ADMIT DATE: 04/24/2024 HISTORY OF PRESENT ILLNESS: The patient is an 83-year-old lady who was admitted after she underwent a right-sided carotid endarterectomy for carotid artery stenosis by Dr. Armando. The patient at this time denies any significant pain. No chest pain, no shortness of breath. No nausea or vomiting. REVIEW OF SYSTEMS: Review of rest of systems are otherwise currently negative. No history of any focal deficit. PAST MEDICAL HISTORY: Significant for end-stage renal disease, on hemodialysis, history of hypertension, diabetes, chronic systolic/diastolic heart failure, sleep apnea, peripheral neuropathy and hyperlipidemia. MEDICATIONS: Include aspirin, Lipitor, ezetimibe, gabapentin, insulin, metoprolol, nifedipine, Entresto and Brilinta. ALLERGIES: No known drug allergies. SOCIAL HISTORY: Denies smoking or alcohol. Lives with her daughter. FAMILY HISTORY: Negative. PHYSICAL EXAMINATION: GENERAL: The patient is awake, alert. VITAL SIGNS: Temperature of 97.7, pulse 54 per minute, blood pressure 138/58. SHEENT: Unremarkable except for drain in the right side of the neck. LUNGS: Equal bilaterally. No added sounds. CARDIOVASCULAR: S1, S2 is regular. There is no murmur. There is bradycardia. ABDOMEN: Soft. There is no organomegaly. NEUROLOGIC: Nonfocal. MUSCULOSKELETAL: Normal. ASSESSMENT AND PLAN: * End-stage renal disease. The patient will be followed up in Nephrology consult by Dr. Cage. * Hypertension. * Diabetes mellitus, for which she will be placed on sliding scale insulin. * Anemia. * Peripheral neuropathy. * Obesity. * Chronic systolic/diastolic heart failure. * Hyperlipidemia. MD JULES Rizo/MINDI TID: [id number] RECEIPT: [id number]
--- NOTE | 2024-04-24 16:58 | DVHINCON2 ---
Date of service: Apr 24, [address] Capone Reason for Consultation End-stage kidney disease History of Present Illness This is a 83-year-old female with history of end-stage kidney disease on hemodialysis, hypertension, type 2 diabetes, congestive heart failure, hyperlipi demia who was evaluated by the vascular surgeon and underwent a right carotid endarterectomy for carotid artery stenosis today. Patient has been admitted to the ICU for observation. Nephrology has been consulted for dialysis. Her last dialysis was on Wednesday. Patient is seen and examined. Denies any shortness of breath. Past Medical History End-stage kidney disease on hemodialysis Hypertension Type 2 diabetes Hyperlipidemia Past Surgical History Right carotid endarterectomy AV fistula Family History: Cancer 19 CHILD Family history: Diabetes mellitus G8 MOTHER Family History Noncontributory Social History Noncontributory Allergies: Coded Allergies: NO KNOWN ALLERGIES (Unverified , 04/24/24) Home Meds Reported Medications Fluticasone Furoate-Vilanterol (Breo Ellipta 200-25 Mcg/INH) 1 Inh Inh, 1 INH IN, INHALER 04/20/24 Atorvastatin Calcium (Lipitor) 40 Mg Tab, 40 MG PO DAILY, TAB 04/20/24 Nifedipine (Nifedipine Er) 90 Mg Tab, 90 MG PO DAILY, TAB 04/20/24 Metoprolol Succinate (Metoprolol Succinate Er) 25 Mg Tab, 25 MG PO DAILY, TAB 04/20/24 Aspirin (Aspir-Low) 81 Mg Tab, 81 MG PO DAILY for LAST DAY TO TAKE 02/15/23, MG 02/12/23 Sacubitril-Valsartan (Entresto 24-26 mg) 1 Tab Tab, 1 TAB PO BID for HTN, TAB 02/12/23 Ezetimibe (Zetia) 10 Mg Tab, 1 TAB PO DAILY, #30 TAB 5 Refills 02/12/23 Ticagrelor Base (BRILINTA) 90 Mg Tab, 90 MG PO BID for LAST DAY TO TAKE 02/15/23, TAB 02/12/23 Insulin Lispro (Human) (Humalog) 100 Mg/Ml Inj, 0 SC, INJ 06/04/16 Insulin Glargine (Lantus) 100 Units/Ml Vial, 70 UNITS SC HS for DIABETES, INJ 06/04/16 Omeprazole (PRILOSEC) 20 Mg Cap, 20 MG PO DAILY for GERD, CAP 4/6/17 Gabapentin (Gabapentin) 300 Mg Cap, MG PO HS for NHEUROPATHY for 30 Days, MG 06/04/16 Discontinued Reported Medications Carvedilol (Carvedilol) 12.5 Mg Tab, 12.5 MG PO BID for HTN, MG 02/12/23 Clonidine Hydrochloride (Clonidine Hcl) 0.2 Mg Tab, 0.3 MG PO BID, TAB 06/04/16 Current Medications Current Medications Medications (Trade) Dose Ordered Sig/Juan Jose Route PRN Reason Start Time Stop Time Status Last Admin Acetaminophen (Ofirmev) 1,000 mg [id number] PRN IV PAIN SCALE 1-3 OR TEMP>100.4 04/24/24 10:30 04/24/24 10:31 DC 04/24/24 10:45 Hydromorphone HCl (Dilaudid Injection) 0.25 mg Q10M PRN IV SEVERE PAIN (7-10 PAIN SCALE) 04/24/24 10:30 04/24/24 11:11 DC 04/24/24 10:56 Nitroglycerin (Ntrostat Sublingual) 0.4 mg Q5MINP PRN SL FOR CHEST PAIN 04/24/24 13:15 Morphine Sulfate 2 mg Q30M PRN IV FOR CHEST PAIN 04/24/24 13:15 Diagnostic Test (Pha) (Accu-Chek Comfort Curve T) 1 strip Q6HR 04/24/24 18:00 Insulin Human Regular (InsuLIN R) Q6HR SC 04/24/24 18:00 Dextrose 50 ml UD PRN IV Blood Sugar LESS THAN 60 04/24/24 14:15 Atorvastatin Calcium (Lipitor) 40 mg HS PO 04/24/24 22:00 Gabapentin (Neurontin Capsule) 300 mg DAILY PO 04/24/24 22:00 Acetaminophen/ Hydrocodone Bitart ([place] 5/325MG Tab) 1 tab Q6HPRN PRN PO MODERATE PAIN (4-6 PAIN SCALE) 04/24/24 14:15 Morphine Sulfate 1 mg Q4HP PRN IV SEVERE PAIN (7-10 PAIN SCALE) 04/24/24 14:15 Acetaminophen (Tylenol Tablet) 650 mg Q6HP PRN PO MILD PAIN (1-3 PAIN SCALE) 04/24/24 14:15 Ondansetron HCl (Zofran) 4 mg Q6HPRN PRN IV NAUSEA / VOMITING 04/24/24 14:15 Review of Systems 12 point review of system negative except as stated in the HPI Vital Signs Vital Signs Date Time Temp Pulse Resp B/P (MAP) Pulse Ox O2 Delivery O2 Flow Rate FiO2 04/24/24 15:58 78 18 149/80 (103) 96 04/24/24 11:13 Nasal Cannula 2.0 04/24/24 11:13 96 04/24/24 10:13 96.9 96.9 Physical Exam Awake alert oriented x3 HEENT: Normocephalic, drain on the right side of neck Lungs: Bilateral good air entry CVS: S1, S2 regular rate rhythm Abdomen: Soft, bowel sounds present MUSIC PRODUCER: No focal deficits Extremities: Trace edema Labs/Diagnostic Data Labs Test 04/24/24 07:25 04/20/24 12:24 Range/Units POC Glucose 107 H 70-106 mg/dl White Blood Count 3.9 L 4.4-10.8 10^3/uL Red Blood Count 3.47 L 4.0-5.20 10^6/uL Hemoglobin 10.6 L 12.2-16.2 g/dL Hematocrit 33.1 L 36.0-46.0 % Mean Corpuscular Volume 95.3 80.0-100.0 fL Mean Corpuscular Hemoglobin 30.6 28.0-32.0 pg Mean Corpuscular Hemoglobin Concent 32.2 32.0-36.0 g/dL Red Cell Distribution Width 18.0 H 11.8-14.3 % Platelet Count 176 140-450 10^3/uL Mean Platelet Volume 8.0 6.9-10.8 fL Neutrophils (%) (Auto) 68.2 37.0-80.0 % Lymphocytes (%) (Auto) 23.3 10.0-50.0 % Monocytes (%) (Auto) 5.4 0.0-12.0 % Eosinophils (%) (Auto) 2.3 0.0-7.0 % Basophils (%) (Auto) 0.8 0.0-2.0 % Neutrophils # (Auto) 2.6 1.6-8.6 10 ^3/uL Lymphocytes # (Auto) 0.9 0.4-5.4 10 ^3/uL Monocytes # (Auto) 0.2 0-1.3 10 ^3/uL Eosinophils # (Auto) 0.1 0-0.8 10 ^3/uL Basophils # (Auto) 0 0-0.2 10 ^3/uL Nucleated Red Blood Cells 0.3 % Prothrombin Time 13.0 H 9.3-11.8 sec Prothrombin Time INR 1.25 H 0.9-1.15 Activated Partial Thromboplast Time 30.2 24.5-34.5 SEC Urine Color Yellow Yellow Urine Clarity Clear Clear Urine pH 6.5 5.0-9.0 Urine Specific [place] 1.014 1.001-1.035 Urine Protein 1+ H Negative Urine Ketones Negative Negative Urine Blood Negative Negative /uL Urine Nitrite Negative Negative Urine Bilirubin Negative Negative Urine Urobilinogen 2 H Negative mg/dL Urine Leukocyte Esterase Trace Negative /uL Urine RBC 2 0 - 4 /hpf Urine Microscopic WBC 6 H 0-5 /HPF Urine Squamous Epithelial Cells Few <5 /hpf Urine Bacteria None seen None Seen /hpf Urine Glucose Normal Normal mg/dL Sodium Level 135 L 136-145 mmol/L Potassium Level 3.3 L 3.5-5.1 mmol/L Chloride Level 94 L 98-107 mmol/L Carbon Dioxide Level 31 20-31 mmol/L Anion Gap 10 5-15 Blood Urea Nitrogen 16 9-23 mg/dL Creatinine 4.08 H 0.550-1.02 mg/dL Glomerular Filtration Rate Calc 10 >90 mL/min BUN/Creatinine Ratio 3.9 L 10.0-20.0 Serum Glucose 137 H 74-106 mg/dL Calcium Level 9.7 8.7-10.4 mg/dL Total Bilirubin 0.4 0.2-1.0 mg/dL Aspartate Amino Transferase (AST) 18 13-40 U/L Alanine Aminotransferase (ALT) 13 7-40 U/L Alkaline Phosphatase 71 46-116 U/L Total Protein 7.3 5.7-8.2 g/dL Albumin 4.5 3.2-4.8 g/dL Assessment End-stage kidney disease on hemodialysis Status post right carotid endarterectomy Hypertension Hyperlipidemia Type 2 diabetes Anemia and CKD Obesity Plan/Recommendation Hemodialysis in a.m. with ultrafiltration for up to 3 L as tolerated. Continue home medications for blood pressure. Plan discussed with: Patient STEVEN WILLIS MD Apr 24, 2024 16:58
[2024-04-24] MEDS: InsuLIN REG 1unit/0.01ml Soln (100units/ml) SC SCH (18:00)
[2024-04-24] MEDS: ACCU-CHEK COMFORT CURVE STRIP VI SCH (18:19)
[2024-04-24] MEDS: ATORVASTATIN 20 MG TAB PO SCH (21:49)
[2024-04-24] MEDS: GABAPENTIN 300 MG CAP PO SCH (21:49)
[2024-04-25] VITALS (18 sets, daily range): BP systolic 105–178; BP diastolic 36–96; PULSE 62–95; RESP 16–26; TEMP 97.4–98.7; O2SAT 91–100
--- NOTE | 2024-04-25 03:57 | DVH ---
CHEST RADIOGRAPH Indication: CHF Technique: Single frontal view of the chest was obtained COMPARISON: None FINDINGS: Lines and Tubes: A permanent pacemaker overlies lateral upper chest and axilla with atrial and ventri cular wire leads. Lungs: Increased interstitial markings are noted in the lungs. Pleura: Bibasilar opacities are noted which may represent effusion and/ or parenchymal disease. No pneumothorax. Cardiomediastinal contours: Unremarkable Bones: Unremarkable IMPRESSION: 1. Findings compatible with CHF and/or pneumonia.
--- NOTE | 2024-04-25 06:54 | DVHPN2 ---
Progress Note Date Seen: Apr 25, 2024 Medical Necessity Reason Pt with a Central, PICC or Fol: No Subjective Patient reports: No new complaints Review of Systems: HEENT:Normal, CVS:Normal, RESPIRATORY:Normal, GI:Normal, :Normal, MSK:Normal, NEURO:Normal Objective vital signs Vital Sign Date Time Temp Pulse Resp B/P (MAP) Pulse Ox O2 Delivery O2 Flow Rate FiO2 04/25/24 06:00 85 04/25/24 06:00 19 134/73 (93) 100 04/25/24 06:00 Nasal Cannula* 2 28 04/25/24 04:00 98.2 98.2 Total Intake and Output 04/24/24 04/24/24 04/25/24 15:00 23:00 07:00 Intake Total 350 ml 350 ml Output Total 25 ml 5 ml 40 ml Balance -25 ml 345 ml 310 ml medications Current Medications Medications Dose Ordered Sig/Juan Jose Route Start Time Stop Time Status Last Admin Dose Admin Nitroglycerin 0.4 mg Q5MINP PRN SL 04/24/24 13:15 Morphine Sulfate 2 mg Q30M PRN IV 04/24/24 13:15 Diagnostic Test (Pha) 1 strip Q6HR 04/24/24 18:00 04/25/24 00:25 1 STRIP Insulin Human Regular Q6HR SC 04/24/24 18:00 Dextrose 50 ml UD PRN IV 04/24/24 14:15 Atorvastatin Calcium 40 mg HS PO 04/24/24 22:00 04/24/24 21:49 40 MG Gabapentin 300 mg DAILY PO 04/24/24 22:00 04/24/24 21:49 300 MG Acetaminophen/ Hydrocodone Bitart 1 tab Q6HPRN PRN PO 04/24/24 14:15 Morphine Sulfate 1 mg Q4HP PRN IV 04/24/24 14:15 Acetaminophen 650 mg Q6HP PRN PO 04/24/24 14:15 Ondansetron HCl 4 mg Q6HPRN PRN IV 04/24/24 14:15 Examination: GENERAL:Normal, HEENT:Normal, NECK:Abnormal (incision cdi, josephine removed), LUNGS:Normal, CVS:Normal, ABDOMEN:Normal, MSK:Normal, SKIN:Normal, NEURO:Normal laboratory and microbiology Laboratory Tests 04/20/24 12:24 Test 04/20/24 12:24 Range/Units Serum Glucose 137 H 74-106 mg/dL Problem List/Assessment/Plan Problem List/Assessment/Plan right carotid CEA pod # 1 Josephine drain removed Dialysis today oob D/c when medically stable cont. with home meds. f/u 2 weeks Plan discussed with: Patient TANIA ARREDONDO Jr., MD Apr 25, 2024 06:54
[2024-04-25] MEDS: SODIUM CHL 0.9% 1000 ML BAG XX ONE (07:00)
[2024-04-25 10:10] LABS: Basophils # (auto) 0 10 ^3/uL (0-0.2); Basophils % (auto) 0.8 % (0.0-2.0); Eosinophils # (auto) 0.1 10 ^3/uL (0-0.8); Eosinophils % (auto) 1.9 % (0.0-7.0); Hematocrit 28.2 % (36.0-46.0); Hemoglobin 9.1 g/dL (12.2-16.2); Lymphocytes # (auto) 0.7 10 ^3/uL (0.4-5.4); Mean Corpuscular Hemoglobin 30.5 pg (28.0-32.0); Mean Corpuscular Hgb Conc. 32.2 g/dL (32.0-36.0); Mean Corpuscular Volume 94.7 fL (80.0-100.0); Monocytes # (auto) 0.4 10 ^3/uL (0-1.3); Monocytes % (auto) 7.2 % (0.0-12.0); Neutrophils # (auto) 3.7 10 ^3/uL (1.6-8.6); Neutrophils % (auto) 75.1 % (37.0-80.0); Nucleated Red Blood Cells % 0.3 %; Platelet Count (auto) 147 10^3/uL (140-450); Red Blood Cells 2.98 10^6/uL (4.0-5.20); Red Cell Distribution Width 17.6 % (11.8-14.3); White Blood Cell 4.9 10^3/uL (4.4-10.8)
[2024-04-25 10:19] LABS: Alanine Aminotransferase 20 U/L (7-40); Albumin 3.7 g/dL (3.2-4.8); Alkaline Phosphatase 66 U/L (46-116); Anion Gap 7 (5-15); Aspartate Aminotransferase 17 U/L (13-40); BUN/Creatinine Ratio 4.9 (10.0-20.0); Carbon Dioxide 30 mmol/L (20-31); Chloride 99 mmol/L (98-107); Potassium 3.9 mmol/L (3.5-5.1); Sodium 136 mmol/L (136-145); Total Protein 6.1 g/dL (5.7-8.2)
[2024-04-25 10:35] LABS: Bilirubin, Total 0.3 mg/dL (0.2-1.0); Blood Urea Nitrogen 25 mg/dL (9-23); Calcium 8.5 mg/dL (8.7-10.4); Glucose 161 mg/dL (74-106)
[2024-04-25] MEDS ORDERED: hydrALAZINE HCL 20 MG/ML VL IV PRN (11:45)
--- NOTE | 2024-04-25 11:46 | DVHPN2 ---
Progress Note Date Seen: Apr 25, 2024 Medical Necessity Reason Pt with a Central, PICC or Fol: No Subjective Patient reports: No new complaints Review of Systems: HEENT:Normal, CVS:Normal, RESPIRATORY:Normal, GI:Normal, :Normal, MSK:Normal, NEURO:Normal Objective vital signs Vital Sign Date Time Temp Pulse Resp B/P (MAP) Pulse Ox O2 Delivery O2 Flow Rate FiO2 04/25/24 10:00 16 100 Nasal Cannula* 2 28 04/25/24 10:00 88 04/25/24 10:00 165/78 (107) 04/25/24 08:00 97.6 97.6 Total Intake and Output 04/24/24 04/24/24 04/25/24 15:00 23:00 07:00 Intake Total 350 ml 350 ml Output Total 25 ml 5 ml 40 ml Balance -25 ml 345 ml 310 ml medications Current Medications Medications Dose Ordered Sig/Juan Jose Route Start Time Stop Time Status Last Admin Dose Admin Nitroglycerin 0.4 mg Q5MINP PRN SL 04/24/24 13:15 Morphine Sulfate 2 mg Q30M PRN IV 04/24/24 13:15 Diagnostic Test (Pha) 1 strip Q6HR 04/24/24 18:00 04/25/24 06:00 1 STRIP Insulin Human Regular Q6HR SC 04/24/24 18:00 Dextrose 50 ml UD PRN IV 04/24/24 14:15 Atorvastatin Calcium 40 mg HS PO 04/24/24 22:00 04/24/24 21:49 40 MG Gabapentin 300 mg DAILY PO 04/24/24 22:00 04/24/24 21:49 300 MG Acetaminophen/ Hydrocodone Bitart 1 tab Q6HPRN PRN PO 04/24/24 14:15 Morphine Sulfate 1 mg Q4HP PRN IV 04/24/24 14:15 Acetaminophen 650 mg Q6HP PRN PO 04/24/24 14:15 Ondansetron HCl 4 mg Q6HPRN PRN IV 04/24/24 14:15 Examination: GENERAL:Normal, HEENT:Normal, NECK:Normal, LUNGS:Normal, CVS:Normal, ABDOMEN:Normal, MSK:Normal, SKIN:Normal, NEURO:Normal, :Normal laboratory and microbiology Laboratory Tests 04/25/24 09:31 Test 04/25/24 09:31 Range/Units Serum Glucose 161 H 74-106 mg/dL Problem List/Assessment/Plan Problem List/Assessment/Plan * End-stage renal disease. The patient will be followed up in Nephrology consult by Dr. Cage. * Hypertension: adjust meds * Diabetes mellitus, for which she will be placed on sliding scale insulin. * Anemia. * Peripheral neuropathy: gabapentin * Obesity. * Chronic systolic/diastolic heart failure: resume entresto * Hyperlipidemia. * cad * s/p carotid endarterectomy for carotid stenosis: per surgery advance care planning- full code- time spent 19 mins Plan discussed with: Patient My Orders My Orders Orders - GUERRERO URIBE MD Procedure Category Date Status Time Admit ADMIT 04/24/24 Transmitted 13:03 Oxygen By Nasal RT 04/24/24 Transmitted Cannula 13:03 Nitroglycerin PHA 04/24/24 In Process Sublingual (Ntrostat 13:15 Morphine Sulfate PHA 04/24/24 In Process Injection 13:15 Stat Ekg For Chest JOSE A 04/24/24 In Process Pain 13:03 Notify Md Of Changes JOSE A 04/24/24 In Process From Base 13:03 System Development Manager For JOSE A 04/24/24 In Process 24 Hours 13:03 Emergency Dysrhythmia JOSE A 04/24/24 In Process Protocol 13:03 Rhythm Strips Once JOSE A 04/24/24 In Process Every Shift 13:03 Renal DIET 04/24/24 Transmitted Standard(2gna,3gk,Lopho) Lunch *Dr. Cage Group -[facility] CONS 04/24/24 Transmitted Elif 14:06 Glucose Blood PHA 04/24/24 In Process (Accu-Chek Comfort 18:00 Insulin R (Human) PHA 04/24/24 In Process (Insulin R) 18:00 Dextrose 50% Syringe PHA 04/24/24 In Process 14:15 Atorvastatin (Lipitor) PHA 04/24/24 In Process 22:00 Gabapentin Capsule PHA 04/24/24 In Process (Neurontin Capsule) 22:00 Hydrocodone-Acet PHA 04/24/24 In Process 5/325mg Tab ([place] 14:15 Morphine Sulfate PHA 04/24/24 In Process Injection 14:15 Acetaminophen Tablet PHA 04/24/24 In Process (Tylenol Tablet) 14:15 Ondansetron Hcl PHA 04/24/24 In Process (Zofran) 14:15 Chest Portable XY 04/25/24 Resulted 06:00 Mrsa Screen JACKY 04/24/24 In Process 18:55 Date of Service: Apr 25, 2024 Billing Provider: GUERRERO URIBE MD Common Visit Codes: [id number] INP/OBS CARE(HIGH) Secondary Visit Codes: [id number] CARE PLAN 30 MINUTES GUERRERO URIBE MD Apr 25, 2024 11:46
--- NOTE | 2024-04-25 18:30 | DVHPN2 ---
Progress Note - Dictate Date Seen: Apr 25, 2024 Medical Necessity Reason Pt with a Central, PICC or Fol: No Subjective s/p dialysis today. Ultrafiltration of 2.5 L. vital signs Vital Sign Date Time Temp Pulse Resp B/P (MAP) Pulse Ox O2 Delivery O2 Flow Rate FiO2 04/25/24 16:40 98.3 62 17 105/53 (70) 91 98.3 04/25/24 14:00 Nasal Cannula* 2 28 Total Intake and Output 04/24/24 04/24/24 04/25/24 15:00 23:00 07:00 Intake Total 350 ml 350 ml Output Total 25 ml 5 ml 40 ml Balance -25 ml 345 ml 310 ml medications Current Medications Medications Dose Ordered Sig/Juan Jose Route Start Time Stop Time Status Last Admin Dose Admin Nitroglycerin 0.4 mg Q5MINP PRN SL 04/24/24 13:15 Morphine Sulfate 2 mg Q30M PRN IV 04/24/24 13:15 Diagnostic Test (Pha) 1 strip Q6HR 04/24/24 18:00 04/25/24 17:45 1 STRIP Insulin Human Regular Q6HR SC 04/24/24 18:00 Dextrose 50 ml UD PRN IV 04/24/24 14:15 Atorvastatin Calcium 40 mg HS PO 04/24/24 22:00 04/24/24 21:49 40 MG Gabapentin 300 mg DAILY PO 04/24/24 22:00 04/25/24 12:42 300 MG Acetaminophen/ Hydrocodone Bitart 1 tab Q6HPRN PRN PO 04/24/24 14:15 Morphine Sulfate 1 mg Q4HP PRN IV 04/24/24 14:15 Acetaminophen 650 mg Q6HP PRN PO 04/24/24 14:15 Ondansetron HCl 4 mg Q6HPRN PRN IV 04/24/24 14:15 Sacubitril/ Valsartan 1 tab BID PO 04/25/24 22:00 Hydralazine HCl 10 mg Q6HP PRN IV 04/25/24 11:45 Aspirin 81 mg DAILY PO 04/26/24 10:00 UNV Ticagrelor 90 mg BID PO 04/25/24 22:00 UNV objective Awake alert oriented x3 HEENT: Normocephalic, drain on the right side of neck Lungs: Bilateral good air entry CVS: S1, S2 regular rate rhythm Abdomen: Soft, bowel sounds present CRIMINAL JUSTICE LAWYER: No focal deficits Extremities: Trace edema laboratory and microbiology Laboratory Tests 04/25/24 09:31 Test 04/25/24 09:31 Range/Units Serum Glucose 161 H 74-106 mg/dL Problem List End-stage kidney disease on hemodialysis Status post right carotid endarterectomy Hypertension Hyperlipidemia Type 2 diabetes Anemia and CKD Obesity Assessment/Plan The patient was dialyzed today. Blood pressure stable. Stable from renal standpoint go discharge. Plan discussed with: Patient STEVEN WILLIS MD Apr 25, 2024 18:30
[2024-04-25] MEDS: TICAGRELOR 90 MG TAB PO SCH (21:37)
[2024-04-25] MEDS: SACUBITRIL-VALSARTAN 24mg/26mg TAB PO SCH (21:37)
[2024-04-26 01:00] VITALS: BP 121/61; PULSE 84; RESP 17; TEMP 98.1; O2SAT 100
[2024-04-26 05:00] VITALS: BP 127/46; PULSE 91; RESP 18; TEMP 99.1; O2SAT 100
[2024-04-26 07:52] LABS: Basophils # (auto) 0 10 ^3/uL (0-0.2); Basophils % (auto) 0.6 % (0.0-2.0); Eosinophils # (auto) 0.1 10 ^3/uL (0-0.8); Eosinophils % (auto) 2.4 % (0.0-7.0); Hematocrit 30.6 % (36.0-46.0); Hemoglobin 9.7 g/dL (12.2-16.2); Lymphocytes # (auto) 0.8 10 ^3/uL (0.4-5.4); Lymphocytes % (auto) 12.9 % (10.0-50.0); Mean Corpuscular Hemoglobin 30.4 pg (28.0-32.0); Mean Corpuscular Hgb Conc. 31.8 g/dL (32.0-36.0); Mean Corpuscular Volume 95.7 fL (80.0-100.0); Monocytes # (auto) 0.5 10 ^3/uL (0-1.3); Monocytes % (auto) 8.6 % (0.0-12.0); Neutrophils # (auto) 4.4 10 ^3/uL (1.6-8.6); Neutrophils % (auto) 75.5 % (37.0-80.0); Platelet Count (auto) 137 10^3/uL (140-450); Red Blood Cells 3.19 10^6/uL (4.0-5.20); Red Cell Distribution Width 17.3 % (11.8-14.3); White Blood Cell 5.9 10^3/uL (4.4-10.8)
[2024-04-26 07:57] LABS: Chloride 98 mmol/L (98-107); Sodium 137 mmol/L (136-145)
[2024-04-26 07:58] LABS: Anion Gap 9 (5-15); Calcium 9.1 mg/dL (8.7-10.4); Carbon Dioxide 30 mmol/L (20-31)
[2024-04-26 08:00] VITALS: PULSE 89
[2024-04-26 08:03] LABS: BUN/Creatinine Ratio 4.7 (10.0-20.0); Glucose 87 mg/dL (74-106)
[2024-04-26 08:06] LABS: Blood Urea Nitrogen 23 mg/dL (9-23)
[2024-04-26 08:10] VITALS: O2SAT 100
[2024-04-26 09:00] VITALS: BP 120/73; PULSE 52; RESP 18; TEMP 97.9; O2SAT 99
[2024-04-26] MEDS: ASPirin 81 mg TAB PO SCH (09:07)
--- NOTE | 2024-04-26 10:12 | DVHDS2 ---
Discharge Summary Date of Admission Apr 24, 2024 at 13:03 Date of Discharge: Apr 26, 2024 Labs/Diagnostic Data: Laboratory Results Test 04/26/24 07:14 04/26/24 06:15 04/25/24 09:31 04/20/24 12:24 White Blood Count 5.9 10^3/uL (4.4-10.8) Red Blood Count 3.19 10^6/uL (4.0-5.20) Hemoglobin 9.7 g/dL (12.2-16.2) Hematocrit 30.6 % (36.0-46.0) Mean Corpuscular Volume 95.7 fL (80.0-100.0) Mean Corpuscular Hemoglobin 30.4 pg (28.0-32.0) Mean Corpuscular Hemoglobin Concent 31.8 g/dL (32.0-36.0) Red Cell Distribution Width 17.3 % (11.8-14.3) Platelet Count 137 10^3/uL (140-450) Mean Platelet Volume 8.6 fL (6.9-10.8) Neutrophils (%) (Auto) 75.5 % (37.0-80.0) Lymphocytes (%) (Auto) 12.9 % (10.0-50.0) Monocytes (%) (Auto) 8.6 % (0.0-12.0) Eosinophils (%) (Auto) 2.4 % (0.0-7.0) Basophils (%) (Auto) 0.6 % (0.0-2.0) Neutrophils # (Auto) 4.4 10 ^3/uL (1.6-8.6) Lymphocytes # (Auto) 0.8 10 ^3/uL (0.4-5.4) Monocytes # (Auto) 0.5 10 ^3/uL (0-1.3) Eosinophils # (Auto) 0.1 10 ^3/uL (0-0.8) Basophils # (Auto) 0 10 ^3/uL (0-0.2) Nucleated Red Blood Cells 0.0 % Sodium Level 137 mmol/L (136-145) Potassium Level 4.0 mmol/L (3.5-5.1) Chloride Level 98 mmol/L (98-107) Carbon Dioxide Level 30 mmol/L (20-31) Anion Gap 9 (5-15) Blood Urea Nitrogen 23 mg/dL (9-23) Creatinine 4.87 mg/dL (0.550-1.02) Glomerular Filtration Rate Calc 8 mL/min (>90) BUN/Creatinine Ratio 4.7 (10.0-20.0) Serum Glucose 87 mg/dL (74-106) Calcium Level 9.1 mg/dL (8.7-10.4) POC Glucose 83 mg/dl (70-106) Hemoglobin A1c 5.6 % A1C (<5.7) Total Bilirubin 0.3 mg/dL (0.2-1.0) Aspartate Amino Transferase (AST) 17 U/L (13-40) Alanine Aminotransferase (ALT) 20 U/L (7-40) Alkaline Phosphatase 66 U/L (46-116) Total Protein 6.1 g/dL (5.7-8.2) Albumin 3.7 g/dL (3.2-4.8) Thyroid Stimulating Hormone (TSH) 0.39 uIU/mL (0.55-4.78) Hepatitis B Surface Antigen Negative (Negative) Prothrombin Time 13.0 sec (9.3-11.8) Prothrombin Time INR 1.25 (0.9-1.15) Activated Partial Thromboplast Time 30.2 SEC (24.5-34.5) Urine Color Yellow (Yellow) Urine Clarity Clear (Clear) Urine pH 6.5 (5.0-9.0) Urine Specific [place] 1.014 (1.001-1.035) Urine Protein 1+ (Negative) Urine Ketones Negative (Negative) Urine Blood Negative /uL (Negative) Urine Nitrite Negative (Negative) Urine Bilirubin Negative (Negative) Urine Urobilinogen 2 mg/dL (Negative) Urine Leukocyte Esterase Trace /uL (Negative) Urine RBC 2 /hpf (0 - 4) Urine Microscopic WBC 6 /HPF (0-5) Urine Squamous Epithelial Cells Few /hpf (<5) Urine Bacteria None seen /hpf (None Seen) Urine Glucose Normal mg/dL (Normal) Other Laboratory Tests 04/26/24 07:14 Brief Hx & Hospital Course: see dictated note Condition at Discharge: Good Final Diagnosis/Problems List right carotid endarterectomy Discharge Disposition: Home Discharge Instruct/Medications Diet: Renal Activity: No Restrictions, As Tolerated Follow Up/Referral: fu with dr Armando, dialysis clinic Medications: resume home meds Discharge Statement: "Patient was advised to return to the ER or call 911 if any headaches, dizziness, shortness of breath, chest pain, abdominal pain, bleeding, fevers, or worsening of medical condition. Patient was counseled about treatment plan, medications, possible side effects, patientverbalized understanding. All questions were answered to the best of my ability. This discharge took greater then 30 minutes in planning, reviewing documentation, counseling the patient, and discussing with other team members." ASSESSMENT ASSESSMENT Assessment right carotid endarterectomy Date of Service: Apr 26, 2024 Billing Provider: GUERRERO URIBE MD Common Visit Codes: 94849-QWL/OBS DISCH DAY >30min GUERRERO URIBE MD Apr 26, 2024 10:12
--- NOTE | 2024-04-26 10:20 | DVHDS ---
DATE OF DISCHARGE: 04/26/2024 HISTORY OF PRESENT ILLNESS: The patient is an 83-year-old lady who was admitted after she underwent right carotid endarterectomy for carotid artery stenosis. The patient has history of end-stage renal disease, on hemodialysis; hypertension; diabetes; chronic systolic/diastolic heart failure; sleep apnea; peripheral neuropathy and hyperlipidemia. HOSPITAL COURSE: The patient did well post procedure. She was seen in Nephrology consult by Dr. Meyers and continued on hemodialysis. The patient is now doing well and has been cleared for discharge by Dr. Armando. The patient will be discharged home to resume her home medications and follow up with her in dialysis clinic as well as with Dr. Armando. FINAL DIAGNOSES: Therefore, * End-stage renal disease, on hemodialysis. * Hypertension. * Diabetes mellitus. * Anemia. * Peripheral neuropathy. * Obesity. * Chronic systolic/diastolic heart failure. * Hyperlipidemia. * Coronary artery disease. * Status post right carotid endarterectomy for carotid artery stenosis. * Thrombocytopenia. Time spent in discharge planning and review of plan with the patient and nursing was 38 minutes. MD JULES Rizo/[place] TID: [id number] RECEIPT: [id number]
[2024-04-26 11:11] VITALS: BP 120/73; PULSE 52; RESP 18; TEMP 97.9; O2SAT 99
== END 2024-04-26 12:42 | disposition home or self-care (01) | DRG 37 ==
LOC: SUR 06:23 → OVERFLOW 13:03 → DOU IN ICU 16:42 → TELE-CENTR 04-25 14:53
PROVIDERS: ADMIT Internal Medicine; ATTEND Internal Medicine
PROC: 03CK0ZZ Extirpation of Matter from Right Internal Carotid Artery, Open Approach (ICD-10-PCS; 2024-04-24)
PROC: 03UH0KZ Supplement Right Common Carotid Artery with Nonautologous Tissue Substitute, Open Approach (ICD-10-PCS; 2024-04-24)
PROC: 03UK0KZ Supplement Right Internal Carotid Artery with Nonautologous Tissue Substitute, Open Approach (ICD-10-PCS; 2024-04-24)
PROC: 03CH0ZZ Extirpation of Matter from Right Common Carotid Artery, Open Approach (ICD-10-PCS; principal; 2024-04-24 07:30)
PROC: 5A1D70Z Performance of Urinary Filtration, Intermittent, Less than 6 Hours Per Day (ICD-10-PCS; 2024-04-25)
DX: I65.21 Occlusion and stenosis of right carotid artery (principal); N18.6 End stage renal disease; I13.2 Hypertensive heart and chronic kidney disease with heart failure and with stage 5 chronic kidney disease, or end stage renal disease; I50.42 Chronic combined systolic (congestive) and diastolic (congestive) heart failure; E11.22 Type 2 diabetes mellitus with diabetic chronic kidney disease; D64.9 Anemia, unspecified; I25.10 Atherosclerotic heart disease of native coronary artery without angina pectoris; E66.9 Obesity, unspecified; D69.6 Thrombocytopenia, unspecified; E78.5 Hyperlipidemia, unspecified; E11.42 Type 2 diabetes mellitus with diabetic polyneuropathy; G47.30 Sleep apnea, unspecified; Z99.2 Dependence on renal dialysis; Z68.35 Body mass index [BMI] 35.0-35.9, adult; Z83.3 Family history of diabetes mellitus; Z79.82 Long term (current) use of aspirin; Z79.899 Other long term (current) drug therapy; Z79.4 Long term (current) use of insulin
CPT/HCPCS: 36415; 71045; 80048; 80053; 81001; 82962; 83036; 84443; 85025; 85610; 85730; 86850; 86900; 86901; 87081; 87340; 90935; 97163; G0378; J0131; J0330; J2003; J2405; J2704; J3490